=== PATIENT | male | born 1990 | race Caucasian/White ===

== ENCOUNTER 2022-10-12 12:59 | Emergency (ER) | payer OTHER ==
[~2022-10-12] VITALS: Ht 170.2 cm; Wt 63.5 kg
[2022-10-12 14:41] VITALS: BP 122/84
== END 2022-10-12 14:40 | disposition other institution, planned readmission (95) ==
LOC: ED 12:59
DX: R10.9 Unspecified abdominal pain (principal)
CPT/HCPCS: 36415; 74177; 80053; 83690; 85025; 96375; 99285 25; J1885; J2405; J7030; Q9967